=== PATIENT | female | born 1945 | race Caucasian/White ===

== ENCOUNTER 2021-07-29 13:18 | Emergency (ER) | payer MEDICARE ==
[~2021-07-29] VITALS: Ht 160 cm; Wt 90.3 kg
[~2021-07-29 13:18] MED LIST: BELVIQ PO; LISINOPRIL10 MG PO; METFORMIN HCL500 MG PO
[2021-07-29] MEDS ORDERED: CASIRIVIMAB/IMDEVIMAB 10 ML in SODIUM CHLORIDE 0.9% 100 ML IV ONE (13:45)
== END 2021-07-29 14:38 | disposition home or self-care (01) ==
LOC: ER 14:22
DX: R05 Cough (principal); U07.1 COVID-19; I10 Essential (primary) hypertension; E11.9 Type 2 diabetes mellitus without complications
CPT/HCPCS: 99283; J7050

== ENCOUNTER → 2022-09-21 | Outpatient (CLI) | payer MEDICARE, OTHER | LOC: RAD 11:53 | PROVIDERS: ATTEND Internal Medicine | DX: R05.9 Cough, unspecified (principal); D72.829 Elevated white blood cell count, unspecified | CPT/HCPCS: 71046 ==